=== PATIENT | male | born 1985 | race Two or more races ===

== ENCOUNTER 2020-09-05 14:07 | Emergency (ER) | payer SELFPAY ==
[~2020-09-05] VITALS: Ht 177.8 cm; Wt 79.4 kg
--- NOTE | 2020-09-05 14:25 | NUR ---
[id number], FROM STREET, TOOK METH LAST NIGHT, PT STS "HE HAS A HOLE IN HIS NECK AND ELECTRICITY RUNNING THROUGH HIS ARMS." PATIENT A/OX4, BREATHING EVEN AND UNLABORED, NO SOB NOTED. URINE SAMPLE SENT TO LAB.
[2020-09-05] MEDS ORDERED: OLANZAPINE 10 MG VIAL IM ONE ×2 (15:00→15:15)
[2020-09-05 16:05] LABS: BASOPHILS # (AUTO) 0.1 /CMM (0.0-0.2); BASOPHILS % (AUTO) 1.1 % (0.0-2.0); EOSINOPHILS % (AUTO) 0.6 % (0.0-6.0); HEMATOCRIT 40 % (39-51); HEMOGLOBIN 14.1 g/dL (13.5-17.5); LYMPHOCYTES # (AUTO) 1.6 /CMM (0.8-4.8); LYMPHOCYTES % (AUTO) 24.8 % (20.0-44.0); MEAN CORPUSCULAR HGB CONC 35 g/dl (31.0-36.0); MEAN CORPUSCULAR VOLUME 97 fL (80-96); MONOCYTES # (AUTO) 0.7 /CMM (0.1-1.30); MONOCYTES % (AUTO) 10.9 % (2.0-12.0); NEUTROPHILS % (AUTO) 62.6 % (43.0-81.0); PLATELET COUNT (AUTO) 314 /CMM (150-450); RED BLOOD CELL COUNT(AUTO) 4.16 MIL/uL (4.5-6.0); WHITE BLOOD COUNT (AUTO) 6.4 K/uL (4.3-11.0)
[2020-09-05 16:07] LABS: BILIRUBIN,URINE NEGATIVE (NEGATIVE); BLOOD, URINE NEGATIVE Ery/uL (NEGATIVE); COLOR,URINE YELLOW (YELLOW); LEUKOCYTE ESTERASE ,URINE NEGATIVE (NEGATIVE); NITRITE, URINE NEGATIVE (NEGATIVE); PROTEIN,URINE NEGATIVE (NEGATIVE); UGLUCOSE NEGATIVE (NEGATIVE); UROBILINOGEN,URINE 0.2 EU/dL (0.2)
[2020-09-05 16:14] LABS: CALCIUM, SERUM 8.9 mg/dL (8.5-10.1); CARBON DIOXIDE 26 mmol/L (21-32); CHLORIDE 104 mmol/L (98-107); CREATININE 0.9 mg/dL (0.6-1.3); GLUCOSE 100 mg/dL (74-106); POTASSIUM 3.9 mmol/L (3.5-5.1); SODIUM SERUM 141 mmol/L (136-145); UREA NITROGEN, BLOOD 17 mg/dL (7-18)
[2020-09-05 16:20] LABS: ACETAMINOPHEN 0 ug/ml (10-30); ALANINE AMINOTRANSFERASE 22 U/L (12-78); ALBUMIN 4.1 g/dL (3.4-5.0); ALCOHOL, BLOOD < 3 mg/dL (0-0); ALKALINE PHOSPHATASE 88 U/L (46-116); ASPARTATE AMINOTRANSFERASE 17 U/L (15-37); BILIRUBIN,DIRECT 0.1 mg/dL (0.0-0.2); BILIRUBIN,TOTAL 0.6 mg/dL (0.2-1.0); TOTAL PROTEIN, SERUM 7.1 g/dL (6.4-8.2)
--- NOTE | 2020-09-05 20:27 | NUR ---
PT AWAKE. AAOX4. AMBULATORY WITH STEADY GAIT. DENIES SI/HI AT THIS TIME. AWARE
--- NOTE | 2020-09-05 21:00 | NUR ---
Patient discharged to home in stable condition. Written and verbal after care instructions given. Patient verbalizes understanding of instruction.Pt ambulatory with a steady gait
[2020-09-05 21:53] VITALS: BP 137/89
== END 2020-09-05 21:53 | disposition home or self-care (01) ==
LOC: ER 14:11
DX: F15.921 Other stimulant use, unspecified with intoxication delirium (principal); Z59.0 Homelessness
CPT/HCPCS: 36415; 80048; 80076; 80299; 80307; 80320; 81001; 85025; 96372; 99283; J3490; G0480